=== PATIENT | male | born 1950 | race Caucasian/White ===

== ENCOUNTER 2022-05-02 19:56 | Outpatient (CLI) | payer OTHER, SELFPAY | END 2022-05-02 19:57 | disposition home or self-care (01) | LOC: AMB 05-05 11:46 | PROVIDERS: PCP Family Medicine; Visit Provider Family Medicine | DX: R06.09 Other forms of dyspnea (principal) | CPT/HCPCS: A0425; A0427 ==

== ENCOUNTER 2022-05-02 21:01 | Inpatient (IN) | payer OTHER, SELFPAY ==
[2022-05-02] VITALS (17 sets, daily range): BP systolic 140–158; BP diastolic 69–148; PULSE 68–76; RESP 20–22; TEMP 36.9; O2SAT 87–95; BMI 34.2
--- NOTE | 2022-05-02 21:24 | ED_ITS ---
HPI - General Adult General Time Seen by Provider: 21:24 Date Seen: 05/02/22 Chief complaint: Shortness of Breath/Dyspnea Stated complaint: Shortness of breath Time Seen by Provider: 05/02/22 21:18 Source: patient, EMS and RN notes reviewed Mode of arrival: EMS Limitations: no limitations History of Present Illness HPI narrative: This 72-year-old male came in from home via EMS with shortness of breath and difficulty breathing. He notes since maybe he was starting to have increased difficulty breathing. He has a history of congestive heart failure, does feel like his belly is been more bloated which she did bring up to his doctor recently. He is on Lasix 20 mg in the morning and has been taking it. He has not had any fevers. Today he started having increased difficulty with his breathing could not lie down but had been able to prior to today. He tried his albuterol prior to the ambulance coming and it did not help. He uses a metered dose inhaler and not nebulization. He has felt chest heaviness or congestion. He does not feel like he is having chest pain that would be a heart attack. He notes he had an echo of few weeks ago which showed some hardening in 1 part of his heart for which she is going to follow-up with a digital marketing apprentice. He has never had a heart attack before. He admits to forgetting some of his medicines the last 2 days. He is on an Advair generic equivalent per his report. EMS gave him 2 nitroglycerin and a DuoNeb in route and he states he is feeling much better. He has not been on any recent antibiotics, no recent oral steroids. On his pulse oximeter at home prior to calling EMS, he was 81-82%, tried sitting up and went up to upper 80s. He currently is on 2.5 L an is around 92-93%. He states at his baseline he is usually at 94% room air at home. Does not have any oxygen at home. EMS also gave him an aspirin. They got his O2 sats to be 88-90% on room air. Related Data Home Medications Medication Instructions Recorded Confirmed albuterol 90 mcg/actuation aerosol mcg inhalation 05/02/22 inhaler atorvastatin 10 mg tablet 10 mg PO DAILY 05/02/22 05/02/22 carvedilol 3.125 mg tablet 3.125 mg PO Q12H 05/02/22 05/02/22 fluticasone propionate 250 1 inh inhalation BID 05/02/22 05/02/22 mcg/actuation blister powder for inhalation furosemide 20 mg tablet 20 mg PO DAILY 05/02/22 05/02/22 losartan 100 mg tablet 100 mg PO DAILY 05/02/22 05/02/22 Allergies Allergy/AdvReac Type Severity Reaction Status Date / Time No Known Drug Allergies Allergy Verified 05/02/22 21:06 Review of Systems Status of ROS: Reports: 10 or more systems reviewed and unremarkable except as noted in History and below [facility] Social History Smoking Status: Former smoker Do you use any of these nicotine containing products: None Second hand tobacco smoke exposure: No How often do you have a drink containing alcohol: 4 or more times a week How many standard drinks containing alcohol do you have on a typical day: 1 or 2 How often do you have six or more drinks on one occasion: Less than monthly AUDIT-C Alcohol total score: 5 Non-prescribed substance use: denies use service: No Exam Const: Vital Signs, click to edit/add: Vital Signs - 24 hr 05/02/22 21:06 05/02/22 21:35 05/02/22 21:57 Temperature 98.4 F Pulse Rate 72 Pulse Rate [Pulse Oximeter] 74 71 Respiratory Rate 22 Blood Pressure Blood Pressure [Le ft Upper Arm] 142/69 H Pulse Oximetry 95 92 92 Oxygen Delivery Me thod Nasal Cannula Nasal Cannula Oxygen Flow Rate 3 05/02/22 22:00 05/02/22 22:02 05/02/22 21:32 Temperature Pulse Rate 72 72 Pulse Rate [Pulse Oximeter] Respiratory Rate Blood Pressure 140/79 H Blood Pressure [Le ft Upper Arm] Pulse Oximetry 92 92 92 Oxygen Delivery Me thod Oxygen Flow Rate 05/02/22 22:03 05/02/22 22:15 05/02/22 22:30 Temperature Pulse Rate 71 73 76 Pulse Rate [Pulse Oximeter] Respiratory Rate Blood Pressure Blood Pressure [Le ft Upper Arm] Pulse Oximetry 92 91 87 L Oxygen Delivery Me thod Oxygen Flow Rate 1 1 1 05/02/22 22:36 05/02/22 22:45 05/02/22 23:00 Temperature Pulse Rate 73 71 70 Pulse Rate [Pulse Oximeter] Respiratory Rate Blood Pressure 158/148 H Blood Pressure [Le ft Upper Arm] Pulse Oximetry 89 90 90 Oxygen Delivery Me thod Nasal Cannula Nasal Cannula Oxygen Flow Rate 1 1 Documenting provider has reviewed patient's vital signs: yes Common normals: no apparent distress, oriented x3, no limitations, healthy appearing, alert and well nourished General appearance: cooperative, comfortable, well kempt and well developed Other: Sitting upright in the ER bed, is able to speak in complete sentences. HENMT: Common normals: normocephalic, head/scalp atraumatic, hearing grossly normal bilaterally and external ears normal Head and scalp: normocephalic and atraumatic External ear: external ears normal Eye: Common normals: PERRL, EOMs intact bilaterally, conjunctivae normal and no scleral icterus Conjunctiva: conjunctiva(e) normal Pupil: PERRL Neck & C-Spine: Common normals: full ROM, no lymphadenopathy, supple, no meningeal signs, no JVD and thyroid normal Thyroid: thyroid normal Chest: Common normals: inspection of chest normal and palpation of chest normal Resp: Common normals: normal respiratory effort, no retractions and no use of accessory muscles Other: Has end expiratory wheezing throughout, does cough when I have him breathe for auscultation of his lungs. Cardio: Common normals: no JVD, regular rate, regular rhythm, S1 normal heart sound, S2 normal heart sound, no gallops, no clicks and no murmurs Rate: regular rate Rhythm: regular rhythm Heart sounds: S1 normal and S2 normal GI: Common normals: Normal to inspection, nondistended, normoactive bowel sounds present, soft to palpation, non-tender, no hepatosplenomegaly and no masses Palpation: soft and no hepatosplenomegaly Extremity: Other: No lower extremity edema, no calf tenderness. Neuro: Common normals: oriented x3 Sensorium/orientation: alert Meningeal signs: no meningeal signs Psych: Appearance: well kempt Course Course Hospital Course: Patient has wheezing which would suggest certainly COPD exacerbation. Have reviewed with him that we will look at his heart enzymes and consider congestive heart failure as a dual diagnosis. Will look for infective etiology, start with a portable chest x-ray. He will also get the triple viral swab. EKG is looking reassuring against acute ischemia but will also use troponin in this evaluation. I am going to give him an albuterol neb now, 40 mg oral steroids. May need to consider IV Lasix if we do think there is a component of CHF. Reevaluation(s) Reevaluation #1: Patient feels somewhat improved after the albuterol neb. On auscultation has increased air movement but there is still some end-expiratory wheezing throughout. Did attempt to turn off his oxygen and within 3 minutes he was down to 88%. I turned him back up to 1 L and within a few minutes he rebounded up to 90%. We discussed that we will make a goal of 90-92% with supplemental oxygen. He states he usually feels okay when he is in that range. Patient and I discussed he is unfortunately very likely to need admission at least overnight. He is hoping he could go home tomorrow. We need to see if any of the viral swab comes back positive. I am less suspicious of COVID causing a picture like this verses influenza or RSV. Does not seem quite sick enough for influenza. Time: 22:14 Consultations Consultation #1: Have spoken to the hospitalist Dr. Plummer. The procalcitonin and D-dimer are not run yet but they had placed a lab add on as she had requested when I spoke to her earlier. Rest of his evaluation is looking stable. No elevation of his troponin. No overt signs of CHF on his chest x-ray. Believe this to be more of a COPD exacerbation without bacterial infection at this time. He has received it nebulization and oral dose of steroids. She will be down to see him shortly. He is requiring supplemental oxygen. Time: 22:51 Vital Signs Vital signs: Initial Vital Signs Temperature 98.4 F 05/02/22 21:06 Temperature Source Temporal Artery Scan 05/02/22 21:06 Pulse Rate 74 05/02/22 21:06 Pulse Rhythm 05/02/22 21:06 Pulse Strength 3+ Normal 05/02/22 21:06 Blood Pressure Position Sitting 05/02/22 21:06 Pulse Oximetry 95 05/02/22 21:06 Oxygen Delivery Method 05/02/22 21:06 Oxygen Flow Rate 3 05/02/22 21:06 Vital Signs Temperature 98.4 F 05/02/22 21:06 Pulse Rate 74 05/02/22 21:06 Pulse Oximetry 95 05/02/22 21:06 Oxygen Delivery Method 05/02/22 21:06 Oxygen Flow Rate 3 05/02/22 21:06 Temperature 98.4 F 05/02/22 21:06 Pulse Rate 70 05/02/22 23:00 Respiratory Rate 22 05/02/22 21:35 Blood Pressure 158/148 H 05/02/22 22:36 Pulse Oximetry 90 05/02/22 23:00 Oxygen Delivery Method 05/02/22 22:45 Oxygen Flow Rate 1 05/02/22 22:45 Medical Decision Making Lab Data Lab results reviewed: Yes I reviewed the patient's lab results Labs: Lab Results 05/02/22 05/02/22 05/02/22 Range/Units 21:45 22:05 22:05 WBC 9.71 (4.50-11.00) K/uL RBC 4.54 (4.30-5.90) m/uL Hgb 14.6 (13.5-17.5) gm/dL Hct 44.3 (37.0-53.0) % MCV 98 (80-100) fL MCH 32 (26-34) pg MCHC 33 (32-36) gm/dL RDW Coeff of Glenn 12.6 (11.5-15.5) % Plt Count 205 (140-440) K/uL Neut % (Auto) 76.6 H (42.0-72.0) % Lymph % (Auto) 8.8 L (20-44) % [place] % (Auto) 7.7 (0.0-11.0) % Eos % (Auto) 5.6 (0.0-7.0) % Baso % (Auto) 0.4 (0.0-3.0) % Neut # (Auto) 7.40 H (1.7-7.0) K/uL Lymph # (Auto) 0.90 (0.90-2.90) K/uL [place] # (Auto) 0.70 (0.00-0.90) K/UL Eos # (Auto) 0.54 H (0.00-0.50) K/uL Baso # (Auto) 0.04 (0.00-0.30) K/uL D-Dimer Quant (PE/DVT) (0.00-0.50) ug/ml VBG pH (7.32-7.43) VBG pCO2 (40-50) mmHG VBG pO2 (25-47) mmHG VBG HCO3 (21-28) mmol/L Sodium 141 (135-149) mmol/L Potassium 4.5 (3.6-5.1) mmol/L Chloride 105 (96-114) mmol/L Carbon Dioxide 30 (20-32) mmol/L BUN 24 (7-30) mg/dL Creatinine 1.0 (0.5-1.5) mg/dL Estimated Creat Clear 72.16 Estimated GFR 80 ml/min Glucose 154 H (60-115) mg/dL Calcium 8.8 (8.4-10.6) mg/dL Total Bilirubin 0.7 (0.1-1.5) mg/dL AST 27 (12-35) U/L ALT 34 (4-50) U/L Alkaline Phosphatase 80 (40-150) U/L C-Reactive Protein 0.8 (0.5-1.0) mg/dL NT-Pro-B Natriuret Pep pg/mL Total Protein 7.3 (6.0-8.3) g/dL Albumin 4.4 (3.3-5.0) g/dL SARS-CoV-2 (PCR) Negative SARS-CoV-2 (Negative) Influenza Type A (PCR) Negative PCR FLU A (Negative) Influenza Type B (PCR) Negative PCR FLU B (Negative) RSV (PCR) Negative PCR RSV (Negative) POC Troponin I (0.01-0.04) ng/ml 05/02/22 05/02/22 05/02/22 Range/Units 22:05 22:05 22:05 WBC (4.50-11.00) K/uL RBC (4.30-5.90) m/uL Hgb (13.5-17.5) gm/dL Hct (37.0-53.0) % MCV (80-100) fL MCH (26-34) pg MCHC (32-36) gm/dL RDW Coeff of Glenn (11.5-15.5) % Plt Count (140-440) K/uL Neut % (Auto) (42.0-72.0) % Lymph % (Auto) (20-44) % [place] % (Auto) (0.0-11.0) % Eos % (Auto) (0.0-7.0) % Baso % (Auto) (0.0-3.0) % Neut # (Auto) (1.7-7.0) K/uL Lymph # (Auto) (0.90-2.90) K/uL [place] # (Auto) (0.00-0.90) K/UL Eos # (Auto) (0.00-0.50) K/uL Baso # (Auto) (0.00-0.30) K/uL D-Dimer Quant (PE/DVT) (0.00-0.50) ug/ml VBG pH 7.375 (7.32-7.43) VBG pCO2 52 H (40-50) mmHG VBG pO2 56.0 H (25-47) mmHG VBG HCO3 30 H (21-28) mmol/L Sodium (135-149) mmol/L Potassium (3.6-5.1) mmol/L Chloride (96-114) mmol/L Carbon Dioxide (20-32) mmol/L BUN (7-30) mg/dL Creatinine (0.5-1.5) mg/dL Estimated Creat Clear Estimated GFR ml/min Glucose (60-115) mg/dL Calcium (8.4-10.6) mg/dL Total Bilirubin (0.1-1.5) mg/dL AST (12-35) U/L ALT (4-50) U/L Alkaline Phosphatase (40-150) U/L C-Reactive Protein (0.5-1.0) mg/dL NT-Pro-B Natriuret Pep 572 pg/mL Total Protein (6.0-8.3) g/dL Albumin (3.3-5.0) g/dL SARS-CoV-2 (PCR) (Negative) Influenza Type A (PCR) (Negative) Influenza Type B (PCR) (Negative) RSV (PCR) (Negative) POC Troponin I 0.00 L (0.01-0.04) ng/ml 05/02/22 Range/Units 22:05 WBC (4.50-11.00) K/uL RBC (4.30-5.90) m/uL Hgb (13.5-17.5) gm/dL Hct (37.0-53.0) % MCV (80-100) fL MCH (26-34) pg MCHC (32-36) gm/dL RDW Coeff of Glenn (11.5-15.5) % Plt Count (140-440) K/uL Neut % (Auto) (42.0-72.0) % Lymph % (Auto) (20-44) % [place] % (Auto) (0.0-11.0) % Eos % (Auto) (0.0-7.0) % Baso % (Auto) (0.0-3.0) % Neut # (Auto) (1.7-7.0) K/uL Lymph # (Auto) (0.90-2.90) K/uL [place] # (Auto) (0.00-0.90) K/UL Eos # (Auto) (0.00-0.50) K/uL Baso # (Auto) (0.00-0.30) K/uL D-Dimer Quant (PE/DVT) 0.70 H (0.00-0.50) ug/ml VBG pH (7.32-7.43) VBG pCO2 (40-50) mmHG VBG pO2 (25-47) mmHG VBG HCO3 (21-28) mmol/L Sodium (135-149) mmol/L Potassium (3.6-5.1) mmol/L Chloride (96-114) mmol/L Carbon Dioxide (20-32) mmol/L BUN (7-30) mg/dL Creatinine (0.5-1.5) mg/dL Estimated Creat Clear Estimated GFR ml/min Glucose (60-115) mg/dL Calcium (8.4-10.6) mg/dL Total Bilirubin (0.1-1.5) mg/dL AST (12-35) U/L ALT (4-50) U/L Alkaline Phosphatase (40-150) U/L C-Reactive Protein (0.5-1.0) mg/dL NT-Pro-B Natriuret Pep pg/mL Total Protein (6.0-8.3) g/dL Albumin (3.3-5.0) g/dL SARS-CoV-2 (PCR) (Negative) Influenza Type A (PCR) (Negative) Influenza Type B (PCR) (Negative) RSV (PCR) (Negative) POC Troponin I (0.01-0.04) ng/ml Imaging Data Chest x-ray: Attestation: I have reviewed the pertinent imaging results. Radiologist's impression: Patient: LUCAS RODRIGUES Facility:?[facility] Patient ID:?[id number] Site Patient ID:?[id number]. Site :?[id number] Study:?XRay Chest PORTABLE-05/02/2022 10:00:21 PM Ordering Physician:Arturo Nice Final Report: Indication: Shortness of breath, wheezing, COPD, history of congestive failure Technique: Chest 1 view Comparison: None Findings/Impression: Cardiovascular and mediastinum: Heart size and vasculature are normal in caliber and appearance. Mediastinum is within normal limits. Lungs and pleural space: Lungs are clear. No sign of infiltrate or mass. No sign of pleural effusion. No pneumothorax. Bones and soft tissues: Elevated right hemidiaphragm. No acute osseous findings. Dictated by Cesilia Rivera MD @ 05/02/2022 10:25:39 PM (Electronic Signature) ECG Data Attestation: I personally reviewed and interpreted this ECG as follows: (Sinus rhythm with first-degree AV block, 74 beats per minute. No ischemic change noted. QT corrected 421 milliseconds.) Prior ECG tracings: not available for review Critical Care Time Critical Care Time Critical Care Time: No Discharge Plan Discharge Clinical Impression: Hypoxia, Acute exacerbation of chronic obstructive pulmonary disease Patient Disposition: Admitted As Inpatient Condition: Unchanged
--- NOTE | 2022-05-02 21:32 | CRLHL7_ITS ---
For Patients: As a result of the Century Cures Act, medical imaging exams and procedure reports are released immediately into your electronic medical record. You may view this report before your referring provider. If you have questions, please contact your health care provider. Indication: Shortness of breath, wheezing, COPD, history of congestive failure Technique: Chest 1 view Comparison: None Findings/Impression: Cardiovascular and mediastinum: Heart size and vasculature are normal in caliber and appearance. Mediastinum is within normal limits. Lungs and pleural space: Lungs are clear. No sign of infiltrate or mass. No sign of pleural effusion. No pneumothorax. Bones and soft tissues: Elevated right hemidiaphragm. No acute osseous findings. Dictated by Cesilia Rivera MD @ 05/02/2022 10:25:39 PM (Electronically Signed)
[2022-05-02] MEDS: ALBUTEROL SULFATE 2.5 MG/3 ML VIAL.NEB NEB (21:50)
[2022-05-02] MEDS: predniSONE 20 MG TABLET 40 MG PO (21:53)
--- NOTE | 2022-05-02 22:00 | ED.NURSE ---
Further communication with the transporting EMS crew reveals the patient reported SpO2 81% on his home pulse oximeter while trying to get into the car prior to EMS arrival. The patient was found to have SpO2 of 88-90% RA by EMS. Patient states he forgot to take his BP medications on and Wednesday. EMS reports tripod positioning. Patient was given Nitro SL 0.4mg x 2, a duoneb, and 324mg ASA PO. Patient also reported to EMS crew that he has had a cough for the last couple of days.
--- NOTE | 2022-05-02 22:13 | ED.NURSE ---
02 at 1 l and to keep 02 greater than 90%.
[2022-05-02 22:14] LABS: HCO3 VBG 30 mmol/L (21-28); PCO2 VBG 52 mmHG (40-50); pH VBG 7.375 (7.32-7.43)
[2022-05-02 22:31] LABS: Albumin* 4.4 g/dL (3.3-5.0); Chloride* 105 mmol/L (96-114); Potassium* 4.5 mmol/L (3.6-5.1); Sodium* 141 mmol/L (135-149)
[2022-05-02 22:34] LABS: Alkaline Phosphatase* 80 U/L (40-150); Aspartate Amino Transferase* 27 U/L (12-35); Bilirubin Total* 0.7 mg/dL (0.1-1.5); Blood Urea Nitrogen* 24 mg/dL (7-30); Carbon Dioxide* 30 mmol/L (20-32); Est. Creatinine Clearance* 72.16; Estimated Glomerular Filt Rate 80 ml/min; Total Protein* 7.3 g/dL (6.0-8.3)
[2022-05-02 22:35] LABS: Alanine Aminotransferase* 34 U/L (4-50); Calcium* 8.8 mg/dL (8.4-10.6); Glucose* 154 mg/dL (60-115)
[2022-05-02 22:37] LABS: C Reactive Protein* 0.8 mg/dL (0.5-1.0)
[2022-05-02 22:39] LABS: PCR FLU A Negative PCR FLU A (Negative); PCR FLU B Negative PCR FLU B (Negative); PCR RSV Negative PCR RSV (Negative)
[2022-05-02 22:40] LABS: Basophils Absolute Auto 0.04 K/uL (0.00-0.30); Basophils Percent Auto 0.4 % (0.0-3.0); Eosinophils Absolute Auto 0.54 K/uL (0.00-0.50); Eosinophils Percent Auto 5.6 % (0.0-7.0); Hematocrit 44.3 % (37.0-53.0); Hemoglobin* 14.6 gm/dL (13.5-17.5); Immature Granulocytes Abs Auto 0.09 K/uL (0.00-0.30); Immature Granulocytes Pct Auto 0.9 %; Lymphocytes Percent Auto 8.8 % (20-44); Mean Corpuscular HGB Conc 33 gm/dL (32-36); Mean Corpuscular Hemoglobin 32 pg (26-34); Mean Corpuscular Volume 98 fL (80-100); Monocytes Percent Auto 7.7 % (0.0-11.0); Neutrophils Percent Auto 76.6 % (42.0-72.0); Platelet Count* 205 K/uL (140-440); RDW Coefficient of Variation % 12.6 % (11.5-15.5); Red Blood Count 4.54 m/uL (4.30-5.90); White Blood Count* 9.71 K/uL (4.50-11.00)
[2022-05-02 22:44] LABS: NT Pro B Type NatriureticPept* 572 pg/mL; Slide Review Reflex No
[2022-05-02 22:44] LABS: SARS PCR* Negative SARS-CoV-2 (Negative)
[2022-05-02 23:20] LABS: Procalcitonin* 0.05 ng/mL (<0.50)
--- NOTE | 2022-05-02 23:39 | PM.IMHP1 ---
Hospitalist- H&P: HPI History of Present Illness Date Seen: 05/03/22 Chief complaint: Shortness of breath Narrative: ADMISSION HISTORY AND PHYSICAL - HOSPITALIST Chief Complaint: I can not catch my breath HPI: 72-year-old white male with a history of COPD, hypertension, obesity, AAA, RACHELLE on CPAP presents with increasing dyspnea. He states roughly 2 weeks ago he noticed a mild increase in his dyspnea on exertion. He used his inhaler which seemed to help initially. He remained active and did not think he needed medical attention. Over the last 2-3 days he has had the dyspnea has gotten much worse. There was no change in his sputum. There is no fever. His cough has picked up. Today he felt anxious and difficult with wheezing and shortness of breath even at rest. No chest pain. His again other was attempting to bring him to the emergency room when he asked for EMS. EMS initially noted O2 sats on room air in the low 80s. PFTs DATE OF SERVICE: 08/23/2019 This is a full pulmonary function test. The FVC and FEV1 were reduced. The FEV1/FVC ratio was 69. After bronchodilators, there was a 13% improvement in the FVC and a 12% improvement in the FEV1. Total lung capacity was normal at 98% of predicted. Diffusing lung capacity was normal at 96% of predicted. Patient's FeNO level was slightly elevated at 36. Patient had a previous spirometry performed on 07/26/2019, which showed an FVC of 1.63 and an the FEV1 of 1. ASSESSMENT: Moderate obstructive pulmonary impairment with a positive bronchodilator response. These findings are suggestive of asthma, though the possibility of COPD cannot be completely excluded. Echo 04/08/22 Final Impressions: 1. Mild evidence of left ventricular hypertrophy. 2. Normal left ventricular size, mildly increased wall thickness, normal global systolic function, calculated EF of 75 %. 3. Right ventricular cavity size is normal, global systolic RV function is normal. 4. The aortic valve is sclerotic, no stenosis and trivial regurgitation. 5. The ascending aorta is dilated with a maximal diameter of 4.5 cm. 6. The aortic sinus is dilated with a maximal diameter of 3.8 cm. ER COURSE: Oxygen to keep sats greater than 90%, needed 3 L initially. Nebs, prednisone and workup indicated COPD exacerbation. CODE STATUS: Full code EMERGENCY CONTACT PLAN: ex , she lives with him. I guess she is more like a significant other. I've updated the [facility], medications and allergies in the Expanse tabs. INVESTIGATIONS: LABS/MICRO/ECG/IMAGING Afebrile, temp is 98.4? F 158/148? Repeat was 143/76 Pulse 60 Respiratory rate 20-22 Pulse ox 92% on 2 L Weight 111 kilos CBC reflects a white blood cell count of 9.7, normal hemoglobin, normal platelets. D-dimer 0.7 PH is 7.37, mild CO2 elevation at 52 Electrolytes, renal function normal. Glucose 154. CRP and procalcitonin are both reassuring. Quad respiratory screen negative. Troponin negative. EKG shows sinus rhythm with a first-degree AV block. Normal chest x-ray, one view portable No micro REVIEW OF SYSTEMS: 12-point ROS completed with patient and negative unless otherwise stated in HPI or below. PHYSICAL EXAM: CONSTITUTIONAL: appears stated age; resting comfortable. can make jokes. He is coughing and audible wheezing noted. VITAL SIGNS: see record. HEENT: Normocephalic, atraumatic. PERRL, EOMI, conjunctivae pink, no scleral icterus. Ears and nose externally normal. Pharynx normal. NECK: No JVD. No carotid bruit, no thyromegaly, no adenopathy. CHEST: wheezing bilaterally; no resp distress HEART: S1 and S2 normal. No harsh murmurs. minimal edema MUSCULOSKELETAL: No gross joint deformity or swelling. NEURO: Cranial nerves intact. Grossly intact. No asymmetric findings. SKIN: No rashes, petechiae, concerning changes PSYCHIATRIC: Euthymic. ADMIT TO MEDSURG: FLOOR CARE DVT: Lovenox GI: PO intake Time spent: 70 minutes examining patient, conferring with family and patient, care staff, developing care plan [facility] Medical History (Updated 05/02/22 @ 23:52 by Marleny Plummer MD) Ascending aortic aneurysm COPD (chronic obstructive pulmonary disease) Essential hypertension Former smoker Hyperlipidemia RACHELLE (obstructive sleep apnea) Surgical History (Updated 05/02/22 @ 23:52 by Marleny Plummer MD) H/O arthroscopy of shoulder Social History (Updated 05/02/22 @ 23:53 by Marleny Plummer MD) Narrative: Retired excavator, 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 Lives with his ex-. Smoking Status: Former smoker Do you use any of these nicotine containing products: None Second hand tobacco smoke exposure: No How often do you have a drink containing alcohol: 4 or more times a week How many standard drinks containing alcohol do you have on a typical day: 1 or 2 How often do you have six or more drinks on one occasion: Less than monthly AUDIT-C Alcohol total score: 5 Non-prescribed substance use: denies use service: No Meds Home Medications and Allergies Home Medications Medication Instructions Recorded Confirmed Type albuterol 90 mcg/actuation aerosol mcg inhalation 05/02/22 History inhaler atorvastatin 10 mg tablet 10 mg PO DAILY 05/02/22 05/02/22 History carvedilol 3.125 mg tablet 3.125 mg PO Q12H 05/02/22 05/02/22 History fluticasone propionate 250 1 inh inhalation BID 05/02/22 05/02/22 History mcg/actuation blister powder for inhalation furosemide 20 mg tablet 20 mg PO DAILY 05/02/22 05/02/22 History losartan 100 mg tablet 100 mg PO DAILY 05/02/22 05/02/22 History Allergies Allergy/AdvReac Type Severity Reaction Status Date / Time No Known Drug Allergies Allergy Verified 05/02/22 21:06 Exam Const: Vital Signs, click to edit/add: Vital Signs - 24 hr 05/02/22 21:06 05/02/22 21:35 05/02/22 21:57 Temperature 98.4 F Pulse Rate 72 Pulse Rate [Pulse Oximeter] 74 71 Respiratory Rate 22 Blood Pressure Blood Pressure [Le ft Upper Arm] 142/69 H Pulse Oximetry 95 92 92 Oxygen Delivery Me thod Nasal Cannula Nasal Cannula Oxygen Flow Rate 3 05/02/22 22:00 05/02/22 22:02 05/02/22 21:32 Temperature Pulse Rate 72 72 Pulse Rate [Pulse Oximeter] Respiratory Rate Blood Pressure 140/79 H Blood Pressure [Le ft Upper Arm] Pulse Oximetry 92 92 92 Oxygen Delivery Me thod Oxygen Flow Rate 05/02/22 22:03 05/02/22 22:15 05/02/22 22:30 Temperature Pulse Rate 71 73 76 Pulse Rate [Pulse Oximeter] Respiratory Rate Blood Pressure Blood Pressure [Le ft Upper Arm] Pulse Oximetry 92 91 87 L Oxygen Delivery Me thod Oxygen Flow Rate 1 1 1 05/02/22 22:36 05/02/22 22:45 05/02/22 23:00 Temperature Pulse Rate 73 71 70 Pulse Rate [Pulse Oximeter] Respiratory Rate Blood Pressure 158/148 H Blood Pressure [Le ft Upper Arm] Pulse Oximetry 89 90 90 Oxygen Delivery Me thod Nasal Cannula Nasal Cannula Oxygen Flow Rate 1 1 05/02/22 23:39 Temperature Pulse Rate Pulse Rate [Pulse Oximeter] 68 Respiratory Rate 20 Blood Pressure Blood Pressure [Le ft Upper Arm] 143/76 H Pulse Oximetry 92 Oxygen Delivery Me thod Nasal Cannula Oxygen Flow Rate 1 Hospitalist - H&P: Result Labs Labs: Short CBC 05/02/22 Range/Units 22:05 WBC 9.71 (4.50-11.00) K/uL Hgb 14.6 (13.5-17.5) gm/dL Hct 44.3 (37.0-53.0) % Plt Count 205 (140-440) K/uL BMP 05/02/22 22:05 Sodium 141 Potassium 4.5 Chloride 105 Carbon Dioxide 30 BUN 24 Creatinine 1.0 Glucose 154 H Calcium 8.8 Liver Function 05/02/22 Range/Units 22:05 Total Bilirubin 0.7 (0.1-1.5) mg/dL AST 27 (12-35) U/L ALT 34 (4-50) U/L Alkaline Phosphatase 80 (40-150) U/L Albumin 4.4 (3.3-5.0) g/dL Assessment and Plan Assessment and plan (1) Acute respiratory failure with hypoxia and hypercapnia: Problem comment: Nebs, Solu-Medrol, no antibiotics at this point. O2 to keep sats greater than 90% Status: Acute (2) Acute exacerbation of chronic obstructive pulmonary disease: Problem comment: Nebs, Solu-Medrol, no antibiotics at this point. O2 to keep sats greater than 90% Status: Acute (3) RACHELLE (obstructive sleep apnea): Problem comment: Compliant with CPAP Status: Acute (4) Morbid obesity: Status: Acute (5) Essential hypertension: Problem comment: Continue Coreg and losartan Status: Acute (6) Ascending aortic aneurysm: Problem comment: 4.5 cm on 04/08/2022 echo Status: Acute (7) COPD (chronic obstructive pulmonary disease): Problem comment: Once daily willie Palaciosr.n. albuterol. No home O2. Smoked until 2007, pack per day Status: Acute
[2022-05-03] VITALS (12 sets, daily range): BP systolic 124–170; BP diastolic 69–90; PULSE 64–86; RESP 18–28; TEMP 36.7–37.1; O2SAT 90–92; BMI 35.3
--- NOTE | 2022-05-03 00:35 | ED.NURSE ---
report was given to m/s. has been watching tv.
[2022-05-03] MEDS: IPRAT-ALBUT 0.5-2.5 MG/3 ML NEB 1 NEB IH ×2 (01:38→14:54)
[2022-05-03] MEDS: LOSARTAN POTASSIUM 50 MG TABLET 100 MG PO ×2 (01:38→10:06)
[2022-05-03] MEDS: METHYLPREDNISOLONE SOD SUCC 62.5 MG/ML (125) 125 MG IVP ×3 (01:39→11:45)
[2022-05-03] MEDS: carvediloL 6.25 MG TABLET 3.125 MG PO ×3 (01:39→20:54)
[2022-05-03] MEDS: SODIUM CHLORIDE 0.9 % (FLUSH) 10 ML SYRINGE 5 ML IVF ×4 (01:47→20:56)
[2022-05-03 07:06] LABS: HCO3 VBG 32 mmol/L (21-28); Ionized Calcium* 1.15 mmol/L (1.11-1.30); PCO2 VBG 55 mmHG (40-50); PO2 VBG 56.6 mmHG (25-47); pH VBG 7.369 (7.32-7.43)
[2022-05-03 07:35] LABS: Chloride* 104 mmol/L (96-114); Potassium* 4.3 mmol/L (3.6-5.1); Sodium* 139 mmol/L (135-149)
[2022-05-03 07:38] LABS: Blood Urea Nitrogen* 20 mg/dL (7-30); Carbon Dioxide* 31 mmol/L (20-32); Creatinine* 0.8 mg/dL (0.5-1.5); Est. Creatinine Clearance* 72.16; Estimated Glomerular Filt Rate 95 ml/min
[2022-05-03 07:39] LABS: Calcium* 8.8 mg/dL (8.4-10.6); Glucose* 183 mg/dL (60-115); Hemoglobin A1C* 5.71 % (0-5.6); Magnesium* 2.3 mg/dL (1.5-2.6)
--- NOTE | 2022-05-03 07:44 | PC.NURSE ---
END OF SHIFT NOTE: PT PLEASANT AND COOPERATIVE. PT C/O CHEST TIGHTNESS AND SOB AT REST AND WITH ACTIVITY. DENIES N/V, DIZZY OR LIGHT-HEADED.?AMBULATES INDEPENDENTLY WITHIN ROOM. VSS ON 1L SUPPLEMENTAL O2; AFEBRILE. BED IN LOW POSITION AND CALL LIGHT WITHIN?PT?S REACH. LS WITH FINE INSPIRATORY CRACKLES AND EXPIRATORY WHEEZING THROUGHOUT POSTERIOR LOBES. PT ENCOURAGED TO USE IS AND AEROBIKA FOR RESPIRATORY HYGIENE.
[2022-05-03 07:56] LABS: Procalcitonin* 0.05 ng/mL (<0.50)
[2022-05-03 07:58] LABS: Troponin I* < 0.01 ng/mL (0.01-0.04)
[2022-05-03] MEDS: ATORVASTATIN 10 MG TABLET PO (10:05)
[2022-05-03] MEDS: BUDESONIDE 0.5 MG/2ML NEB NEB ×2 (10:05→20:55)
[2022-05-03] MEDS: FUROSEMIDE 20 MG TABLET PO (10:06)
--- NOTE | 2022-05-03 12:17 | PM.IMPN1 ---
Progress Note: A&P Assessment and plan (1) Acute respiratory failure with hypoxia and hypercapnia: Problem details: Nebs, Solu-Medrol, no antibiotics at this point. O2 to keep sats greater than 90% Status: Acute (2) Acute exacerbation of chronic obstructive pulmonary disease: Problem details: Nebs, Solu-Medrol, no antibiotics at this point. O2 to keep sats greater than 90% Status: Acute (3) Essential hypertension: Problem details: Continue Coreg and losartan Status: Acute (4) Morbid obesity: Status: Acute (5) RACHELLE (obstructive sleep apnea): Problem details: Compliant with CPAP Status: Acute (6) Ascending aortic aneurysm: Problem details: 4.5 cm on 04/08/2022 echo Status: Acute Plan continue IV solumedrol; continue nebs, procal 0.05 hold off on antibiotics; continue RT evaluation and pulmonary diet anticipate discharge to home tomorrow wean oxygen as tolerated; only requiring 1 liter currently Subjective Date Seen: 05/03/22 Interval history: patient requiring 1 liter supplemental oxygen still endorsing wheezing and productive cough denies chest pain Exam Narrative: Exam Narrative: Gen: no acute distress HEENT: NCAT EOMI mmm CV: RRR normal s1 s2 Lungs:diminished breath sounds; end expiratory wheezing Abd: Soft,nt, nd Neuro: Alert, oriented, CN grossly intact; nonfocal screening?exam Psych: appropriate affect MSK: age appropriate muscle mass Skin; Warm, dry no rash on face Const: Vital Signs, click to edit/add: Vital Signs - 24 hr 05/02/22 21:06 05/02/22 21:35 05/02/22 21:57 Temperature 98.4 F Pulse Rate 72 Pulse Rate [Pulse Oximeter] 74 71 Respiratory Rate 22 Blood Pressure Blood Pressure [Le ft Upper Arm] 142/69 H Blood Pressure [Ri ght Arm] Pulse Oximetry 95 92 92 Oxygen Delivery Me thod Nasal Cannula Nasal Cannula Oxygen Flow Rate 3 05/02/22 22:00 05/02/22 22:02 05/02/22 21:32 Temperature Pulse Rate 72 72 Pulse Rate [Pulse Oximeter] Respiratory Rate Blood Pressure 140/79 H Blood Pressure [Le ft Upper Arm] Blood Pressure [Ri ght Arm] Pulse Oximetry 92 92 92 Oxygen Delivery Me thod Oxygen Flow Rate 05/02/22 22:03 05/02/22 22:15 05/02/22 22:30 Temperature Pulse Rate 71 73 76 Pulse Rate [Pulse Oximeter] Respiratory Rate Blood Pressure Blood Pressure [Le ft Upper Arm] Blood Pressure [Ri ght Arm] Pulse Oximetry 92 91 87 L Oxygen Delivery Me thod Oxygen Flow Rate 1 1 1 05/02/22 22:36 05/02/22 22:45 05/02/22 23:00 Temperature Pulse Rate 73 71 70 Pulse Rate [Pulse Oximeter] Respiratory Rate Blood Pressure 158/148 H Blood Pressure [Le ft Upper Arm] Blood Pressure [Ri ght Arm] Pulse Oximetry 89 90 90 Oxygen Delivery Me thod Nasal Cannula Nasal Cannula Oxygen Flow Rate 1 1 05/02/22 23:39 05/02/22 23:15 05/02/22 23:30 Temperature Pulse Rate 70 69 Pulse Rate [Pulse Oximeter] 68 Respiratory Rate 20 Blood Pressure Blood Pressure [Le ft Upper Arm] 143/76 H Blood Pressure [Ri ght Arm] Pulse Oximetry 92 90 91 Oxygen Delivery Me thod Nasal Cannula Oxygen Flow Rate 1 05/02/22 23:36 05/02/22 23:39 05/02/22 23:45 Temperature Pulse Rate 69 71 71 Pulse Rate [Pulse Oximeter] Respiratory Rate Blood Pressure 143/76 H Blood Pressure [Le ft Upper Arm] Blood Pressure [Ri ght Arm] Pulse Oximetry 91 91 91 Oxygen Delivery Me thod Oxygen Flow Rate 05/03/22 00:00 05/03/22 00:02 05/03/22 00:15 Temperature Pulse Rate 70 69 69 Pulse Rate [Pulse Oximeter] Respiratory Rate Blood Pressure 153/83 H Blood Pressure [Le ft Upper Arm] Blood Pressure [Ri ght Arm] Pulse Oximetry 91 91 91 Oxygen Delivery Me thod Oxygen Flow Rate 05/03/22 02:00 05/03/22 00:49 05/03/22 00:49 Temperature 98.4 F Pulse Rate 75 Pulse Rate [Pulse Oximeter] 77 Respiratory Rate 20 20 Blood Pressure Blood Pressure [Le ft Upper Arm] Blood Pressure [Ri ght Arm] 170/88 H Pulse Oximetry 92 92 Oxygen Delivery Me thod Nasal Cannula Nasal Cannula Oxygen Flow Rate 1 1 05/03/22 00:47 05/03/22 00:47 05/03/22 00:47 Temperature 98.4 F Pulse Rate Pulse Rate [Pulse Oximeter] 77 Respiratory Rate 20 20 Blood Pressure Blood Pressure [Le ft Upper Arm] Blood Pressure [Ri ght Arm] 170/88 H Pulse Oximetry 92 92 92 Oxygen Delivery Me thod Nasal Cannula Nasal Cannula Oxygen Flow Rate 1 1 05/03/22 03:00 Temperature Pulse Rate Pulse Rate [Pulse Oximeter] 71 Respiratory Rate 20 Blood Pressure Blood Pressure [Le ft Upper Arm] Blood Pressure [Ri ght Arm] 146/85 H Pulse Oximetry 91 Oxygen Delivery Me thod Nasal Cannula Oxygen Flow Rate 1 Labs Labs: Laboratory Results - last 24 hr 05/02/22 05/02/22 05/02/22 21:45 22:05 22:05 WBC 9.71 RBC 4.54 Hgb 14.6 Hct 44.3 MCV 98 MCH 32 MCHC 33 RDW Coeff of Glenn 12.6 Plt Count 205 Neut % (Auto) 76.6 H Lymph % (Auto) 8.8 L [place] % (Auto) 7.7 Eos % (Auto) 5.6 Baso % (Auto) 0.4 Neut # (Auto) 7.40 H Lymph # (Auto) 0.90 [place] # (Auto) 0.70 Eos # (Auto) 0.54 H Baso # (Auto) 0.04 D-Dimer Quant (PE/DVT) VBG pH VBG pCO2 VBG pO2 VBG HCO3 Sodium 141 Potassium 4.5 Chloride 105 Carbon Dioxide 30 BUN 24 Creatinine 1.0 Estimated Creat Clear 72.16 Estimated GFR 80 Glucose 154 H Hemoglobin A1c Calcium 8.8 Ionized Calcium Abdoul Magnesium Total Bilirubin 0.7 AST 27 ALT 34 Alkaline Phosphatase 80 Troponin I C-Reactive Protein 0.8 NT-Pro-B Natriuret Pep Total Protein 7.3 Albumin 4.4 Procalcitonin SARS-CoV-2 (PCR) Negative SARS-CoV-2 Influenza Type A (PCR) Negative PCR FLU A Influenza Type B (PCR) Negative PCR FLU B RSV (PCR) Negative PCR RSV POC Troponin I 05/02/22 05/02/22 05/02/22 22:05 22:05 22:05 WBC RBC Hgb Hct MCV MCH MCHC RDW Coeff of Glenn Plt Count Neut % (Auto) Lymph % (Auto) [place] % (Auto) Eos % (Auto) Baso % (Auto) Neut # (Auto) Lymph # (Auto) [place] # (Auto) Eos # (Auto) Baso # (Auto) D-Dimer Quant (PE/DVT) VBG pH 7.375 VBG pCO2 52 H VBG pO2 56.0 H VBG HCO3 30 H Sodium Potassium Chloride Carbon Dioxide BUN Creatinine Estimated Creat Clear Estimated GFR Glucose Hemoglobin A1c Calcium Ionized Calcium Abdoul Magnesium Total Bilirubin AST ALT Alkaline Phosphatase Troponin I C-Reactive Protein NT-Pro-B Natriuret Pep 572 Total Protein Albumin Procalcitonin 0.05 SARS-CoV-2 (PCR) Influenza Type A (PCR) Influenza Type B (PCR) RSV (PCR) POC Troponin I 0.00 L 05/02/22 05/03/22 05/03/22 22:05 06:39 06:39 WBC RBC Hgb Hct MCV MCH MCHC RDW Coeff of Glenn Plt Count Neut % (Auto) Lymph % (Auto) [place] % (Auto) Eos % (Auto) Baso % (Auto) Neut # (Auto) Lymph # (Auto) [place] # (Auto) Eos # (Auto) Baso # (Auto) D-Dimer Quant (PE/DVT) 0.70 H VBG pH VBG pCO2 VBG pO2 VBG HCO3 Sodium 139 Potassium 4.3 Chloride 104 Carbon Dioxide 31 BUN 20 Creatinine 0.8 Estimated Creat Clear 72.16 Estimated GFR 95 Glucose 183 H Hemoglobin A1c 5.71 H Calcium 8.8 Ionized Calcium Abdoul Magnesium 2.3 Total Bilirubin AST ALT Alkaline Phosphatase Troponin I < 0.01 L C-Reactive Protein 1.0 NT-Pro-B Natriuret Pep Total Protein Albumin Procalcitonin 0.05 SARS-CoV-2 (PCR) Influenza Type A (PCR) Influenza Type B (PCR) RSV (PCR) POC Troponin I 05/03/22 06:39 WBC RBC Hgb Hct MCV MCH MCHC RDW Coeff of Glenn Plt Count Neut % (Auto) Lymph % (Auto) [place] % (Auto) Eos % (Auto) Baso % (Auto) Neut # (Auto) Lymph # (Auto) [place] # (Auto) Eos # (Auto) Baso # (Auto) D-Dimer Quant (PE/DVT) VBG pH 7.369 VBG pCO2 55 H VBG pO2 56.6 H VBG HCO3 32 H Sodium Potassium Chloride Carbon Dioxide BUN Creatinine Estimated Creat Clear Estimated GFR Glucose Hemoglobin A1c Calcium Ionized Calcium Abdoul 1.15 Magnesium Total Bilirubin AST ALT Alkaline Phosphatase Troponin I C-Reactive Protein NT-Pro-B Natriuret Pep Total Protein Albumin Procalcitonin SARS-CoV-2 (PCR) Influenza Type A (PCR) Influenza Type B (PCR) RSV (PCR) POC Troponin I
[2022-05-03] MEDS: guaiFENesin 100 MG/ML CUP PO (14:54)
[2022-05-03] MEDS: ENOXAPARIN 40 MG/0.4 ML INJ SUBCUT (20:55)
--- NOTE | 2022-05-03 21:30 | PC.NURSE ---
Nursing Care Hours: [id number] Pt this shift calm, cooperative, and very pleasant. Alert and oriented. Afebrile. Keeping O2 sats above 88% with 1L NC. Independent in room. Used portable O2 tank to walk in brody x2, maintained sat at 1.5 L NC.
[2022-05-04 03:00] VITALS: BP 148/83; PULSE 71; RESP 20; TEMP 37; O2SAT 91
--- NOTE | 2022-05-04 06:27 | PC.NURSE ---
Addendum entered by Haylee Mendez RN 05/04/22 06:50: PT WALKING THE HALLS THIS MORNING. ON 1.5L O2. DESATTING TO 85%. PT REPORTS FEELING SOB WITH ACTIVITY AND TIGHTNESS TO CHEST. Original Note: END OF SHIFT NOTE: PT PLEASANT AND COOPERATIVE. OCCASIONALLY C/O CHEST TIGHTNESS AND SOB. PT IS ENCOURAGED TO USE AEROBIKA AND IS FOR RESPIRATORY TOILETING.?AMBULATES INDEPENDENTLY WITHIN ROOM. VSS WITH 1-2L SUPPLEMENTAL OXYGEN NOC VIA NC. PT HAS RACHELLE, NOT USING CPAP DURING HOSPITAL STAY. AFEBRILE. BED IN LOW POSITION?AND CALL LIGHT WITHIN PT?S REACH.
[2022-05-04] MEDS: IPRAT-ALBUT 0.5-2.5 MG/3 ML NEB 1 NEB IH ×4 (06:54→19:51)
--- NOTE | 2022-05-04 07:35 | CRLHL7_ITS ---
For Patients: As a result of the Cures Act, medical imaging exams and procedure reports are released immediately into your electronic medical record. You may view this report before your referring provider. If you have questions, please contact your health care provider. INDICATION: COPD. TECHNIQUE: AP portable chest. COMPARISON: May 02, 2022. FINDINGS: Shallow inspiration. Eventration or elevation of the right hemidiaphragm unchanged. Questionable minor basilar atelectasis on the right. Clear left lung. No congestive heart failure. Old left clavicular fracture. IMPRESSION: No acute cardiopulmonary process identified. No significant change. Dictated by Jason Kerns MD @ 05/04/2022 8:55:41 AM (Electronically Signed)
[2022-05-04] MEDS: predniSONE 20 MG TABLET 60 MG PO (08:05)
[2022-05-04 08:50] VITALS: BP 151/78; PULSE 72; RESP 20; TEMP 36.8; O2SAT 93
--- NOTE | 2022-05-04 09:38 | RESP.RT ---
Patient is currently on 2 L NC and SATing 90%. He states that he has an Advair inhaler at home that he self medicates with once a day because he forgets to do his medications at night. I recommend Breo as an alternative as that covers 24hrs. He also states that he feels much better after a neb, but still gets fairly short of breath with activity. He is able to work with the [employer] on his own and we will monitor his ability to be weaned off O2 at rest, and will test him for Home O2 tomorrow.
[2022-05-04] MEDS: ATORVASTATIN 10 MG TABLET PO (09:45)
[2022-05-04] MEDS: carvediloL 6.25 MG TABLET 3.125 MG PO ×2 (09:46→20:49)
[2022-05-04] MEDS: FUROSEMIDE 20 MG TABLET PO (09:47)
[2022-05-04] MEDS: BUDESONIDE 0.5 MG/2ML NEB NEB ×2 (09:47→20:50)
[2022-05-04] MEDS: LOSARTAN POTASSIUM 50 MG TABLET 100 MG PO (09:47)
[2022-05-04] MEDS: SODIUM CHLORIDE 0.9 % (FLUSH) 10 ML SYRINGE 5 ML IVF ×2 (09:50→20:51)
[2022-05-04 11:10] VITALS: BP 151/87; PULSE 70; RESP 20; TEMP 36.7; O2SAT 90
--- NOTE | 2022-05-04 12:33 | P.IMPN_ITS ---
Progress Note: A&P Assessment and plan (1) Acute respiratory failure with hypoxia and hypercapnia: Problem details: - known history of COPD - continue steroids (transitioned to oral prednisone 05/04), nebulizer treatment, supplemental oxygen as needed - no indication for antibiotics given reassuring exam, normal procalcitonin, reassuring repeat chest XR - appreciate input from respiratory therapy Status: Acute (2) Acute exacerbation of chronic obstructive pulmonary disease: Status: Acute (3) Essential hypertension: Problem details: - continue home doses of Coreg and losartan Status: Acute (4) RACHELLE (obstructive sleep apnea): Problem details: - Compliant with CPAP as an outpatient Status: Acute (5) Ascending aortic aneurysm: Problem details: - 4.5 cm on 04/08/2022 echo, outpatient follow-up Status: Acute Plan - continue supplemental oxygen treatments as noted above - plan to continue to wean oxygen and discharged home when medically stable on room air, likely tomorrow - patient in agreement with plan Subjective Date Seen: 05/04/22 Interval history: No acute events overnight. Still requiring supplemental oxygen. Tolerating nebs and steroids well, feels better after nebulizer treatments. Working with respiratory therapy. Exam Narrative: Exam Narrative: GEN: Alert and oriented, sitting comfortably on bed and speaking in full sentences without concerning dyspnea HEENT: Normal external ears, EOMIs bilaterally, no scleral icterus CV: RRR, No concerning murmurs, rubs, or gallops R: Lung sounds decreased throughout, no concerning wheezing (had received a neb just prior to my exam) Ext: wwp, no concerning edema Skin: No concerning skin lesions or rashes on exposed skin Neuro: Nonfocal Psych: Appropriate Const: Vital Signs, click to edit/add: Vital Signs - 24 hr 05/03/22 15:00 05/03/22 15:00 05/03/22 19:00 Temperature 98.1 F Pulse Rate [Pulse Oximeter] 85 74 Respiratory Rate 18 20 Blood Pressure [Ri ght Arm] 149/75 H Pulse Oximetry 91 90 Oxygen Delivery Me thod Nasal Cannula Oxygen Flow Rate 1 05/03/22 23:00 05/03/22 23:00 05/03/22 23:00 Temperature 98.8 F Pulse Rate [Pulse Oximeter] 66 66 Respiratory Rate 22 22 Blood Pressure [Ri ght Arm] 124/69 Pulse Oximetry 91 91 Oxygen Delivery Me thod Nasal Cannula Oxygen Flow Rate 1 05/04/22 03:00 05/04/22 08:50 05/04/22 08:50 Temperature 98.6 F 98.3 F Pulse Rate [Pulse Oximeter] 71 72 Respiratory Rate 20 20 Blood Pressure [[facility] Arm] 148/83 H 151/78 H Pulse Oximetry 91 93 93 Oxygen Delivery Me thod Nasal Cannula Nasal Cannula Oxygen Flow Rate 2 2 05/04/22 11:10 Temperature 98.0 F Pulse Rate [Pulse Oximeter] 70 Respiratory Rate 20 Blood Pressure [[facility] Arm] 151/87 H Pulse Oximetry 90 Oxygen Delivery Me thod Nasal Cannula Oxygen Flow Rate 1
[2022-05-04 15:00] VITALS: BP 173/91; PULSE 74; RESP 20; TEMP 36.8; O2SAT 90
[2022-05-04 19:00] VITALS: BP 149/99; PULSE 72; RESP 20; TEMP 36.7; O2SAT 90
--- NOTE | 2022-05-04 19:49 | PC.NURSE ---
Pt up independently in room. RA -1L O2 needed throughout the day. Pt using IS and aerobica independently. Pt states he notices a big difference with sats when using aerobica. Education on medication complicance as well as importance of daily weight, pt agrees to information and agrees to compliance once home.
[2022-05-04 20:00] VITALS: PULSE 72; RESP 20; O2SAT 92
[2022-05-04] MEDS: ENOXAPARIN 40 MG/0.4 ML INJ SUBCUT (20:48)
[2022-05-05] MEDS: IPRAT-ALBUT 0.5-2.5 MG/3 ML NEB 1 NEB IH ×2 (03:45→07:02)
[2022-05-05 04:18] VITALS: BP 156/93; PULSE 66; RESP 20; TEMP 36.6; O2SAT 91
[2022-05-05 07:25] VITALS: PULSE 65; RESP 18
--- NOTE | 2022-05-05 08:06 | PC.NURSE ---
END OF SHIFT NOTE: PT PLEASANT AND COOPERATIVE. AMBULATES WITHIN ROOM INDEPENDENTLY. ON .5L NC TO MAINTAIN SPO2 >90%. PT CONTINUES TO USE IS AND AEROBIKA FOR RESPIRATORY TOILETING. NO WHEEZING AUSCULTATED THIS SHIFT. PT WOKE AT 3AM AND WAS UNABLE TO FALL BACK ASLEEP.
[2022-05-05 08:12] VITALS: BP 177/93; PULSE 65; RESP 18; TEMP 36.7; O2SAT 94; O2SAT 95
[2022-05-05] MEDS: LOSARTAN POTASSIUM 50 MG TABLET 100 MG PO (08:22)
[2022-05-05] MEDS: ATORVASTATIN 10 MG TABLET PO (08:22)
[2022-05-05] MEDS: FUROSEMIDE 20 MG TABLET PO (08:23)
[2022-05-05] MEDS: carvediloL 6.25 MG TABLET 3.125 MG PO (08:23)
[2022-05-05] MEDS: predniSONE 20 MG TABLET 60 MG PO (08:24)
[2022-05-05] MEDS: BUDESONIDE 0.5 MG/2ML NEB NEB (08:24)
--- NOTE | 2022-05-05 08:50 | PM.DS1 ---
DS: Providers Provider Date Seen: 05/05/22 Date of admission: 05/03/22 00:47 Primary care physician: Pablo Zuñiga MD Admitting Clinician: Marleny Plummer MD Consults: Respiratory therapy Attending Physician on discharge: Kylee Olivier MD Date of Discharge: 05/05/22 DS: Diagnosis Discharge Diagnosis (1) Acute respiratory failure with hypoxia and hypercapnia: Status: Acute (2) Acute exacerbation of chronic obstructive pulmonary disease: Status: Acute (3) Essential hypertension: Status: Acute Problem details: - continued home doses of Coreg and losartan (4) RACHELLE (obstructive sleep apnea): Status: Acute Problem details: - Compliant with CPAP as an outpatient (5) Ascending aortic aneurysm: Status: Acute Problem details: - 4.5 cm on 04/08/2022 echo, outpatient follow-up DS: Summary Hospital Course Hospital Course: Dipak is a very pleasant 72-year-old male with a known history of COPD, who presented to the hospital with acute hypoxic respiratory failure, secondary to COPD exacerbation. He was treated with steroids, DuoNebs, supplemental oxygen. He did not require antibiotic therapy given reassuring exam, normal procalcitonin, and reassuring imaging. Respiratory therapy followed patient during stay; recommended transitioning from Advair to Breo upon discharge given once daily dosing and cost. He was able to wean off supplemental oxygen and discharged home on room air on hospital day 2. He will see his PCP in 5-10 days for hospital discharge follow-up, return precautions discussed. Status at Discharge Functional status at discharge: independent ambulation Overall status at discharge: patient is back to baseline Time Spent with Patient Time attestation: Total time spent providing and/or coordinating discharge services: Time spent: Greater than 30 minutes Specific discharge activities: Medication reconciliation, new prescriptions, care coordination Exam Narrative: Exam Narrative: GEN: Alert, oriented, speaking in full sentences, nontoxic in appearance HEENT: EOMIs bilaterally, no scleral icterus CV: RRR, No concerning murmurs, rubs, or gallops R: LCTA bilaterally without audible wheezing. Air movement noted to be mildly decreased throughout Ext: wwp, no concerning edema Skin: No concerning skin lesions or rashes on exposed skin Neuro: Nonfocal Psych: Appropriate Const: Vital Signs, click to edit/add: Vital Signs - 24 hr 05/04/22 11:10 05/04/22 15:00 05/04/22 15:00 Temperature 98.0 F 98.3 F Pulse Rate [Bilate ral Dorsalis Pedis ] Pulse Rate [Pulse Oximeter] 70 74 Respiratory Rate 20 20 Blood Pressure [Ri ght Arm] 151/87 H 173/91 H Pulse Oximetry 90 90 90 Oxygen Delivery Me thod Nasal Cannula Room Air Oxygen Flow Rate 1 05/04/22 19:00 05/05/22 04:18 05/04/22 20:00 Temperature 98.1 F 97.9 F Pulse Rate [Bilate ral Dorsalis Pedis ] 66 Pulse Rate [Pulse Oximeter] 72 Respiratory Rate 20 20 Blood Pressure [Ri ght Arm] 149/99 H 156/93 H Pulse Oximetry 90 91 92 Oxygen Delivery Me thod Room Air Nasal Cannula Oxygen Flow Rate 1 0.5 05/04/22 20:00 05/05/22 08:12 05/05/22 08:12 Temperature 98.0 F Pulse Rate [Bilate ral Dorsalis Pedis ] 65 Pulse Rate [Pulse Oximeter] 72 Respiratory Rate 20 18 Blood Pressure [Ri ght Arm] 177/93 H Pulse Oximetry 95 94 Oxygen Delivery Me thod Nasal Cannula Oxygen Flow Rate 0.5 05/05/22 07:25 Temperature Pulse Rate [Bilate ral Dorsalis Pedis ] 65 Pulse Rate [Pulse Oximeter] Respiratory Rate 18 Blood Pressure [Ri ght Arm] Pulse Oximetry Oxygen Delivery Me thod Oxygen Flow Rate Discharge Plan Discharge Disposition: Home, Self-Care Date of Admission: 05/03/22 00:47 Attending Provider on Discharge: Kylee Olivier Primary Care Provider: Pablo Zuñiga Condition: Improved Anticipated Discharge Date/Time: 05/05/22 10:00 Discharge Medications: New ipratropium-albuterol 0.5 mg-3 mg(2.5 mg base)/3 mL Solution For Nebulization 1.5 ml inhalation Q4H PRN (Reason: shortness of breath or wheezing) Qty: 90 0RF fluticasone furoate-vilanterol [Breo Ellipta] 200-25 mcg/dose blister with device 1 inh inhalation DAILY Qty: 60 0RF prednisone 10 mg tablet 10 mg PO DAILY 18 Days Qty: 43 0RF Rx Instructions: 6 tabs po x1d, then 4 tabs po Qdx5d, then 2 tabs po Qdx5d, then 1 tab po QD x7d, then stop (DME) nebulizer and compressor Device See Rx Instructions .Route Qty: 1 0RF Rx Instructions: As directed Continued albuterol 90 mcg/actuation aerosol inhalation carvedilol 3.125 mg tablet 3.125 mg PO BIDWM Rx Instructions: must administer with a meal/food atorvastatin 10 mg tablet 10 mg PO DAILY furosemide 20 mg tablet 20 mg PO DAILY losartan 100 mg tablet 100 mg PO DAILY Discontinued fluticasone propionate 250 mcg/actuation blister with device 1 inh inhalation BID Discharge Orders: Discharge Order (Routine); Ordered 05/05/22 Ordered By: Kylee Olivier Patient Education: Prednisone (By mouth), Ipratropium/Albuterol (By breathing), Fluticasone/Vilanterol (By breathing), COPD (Chronic Obstructive Pulmonary Disease) (DC) Additional Instructions: STOP your Advair. Medications at Pharmacy: START Breo (new steroid inhaler, once/day - take every day to prevent further COPD exacerbations). CONTINUE Prednisone taper (take once/day, in the morning with food). NEW: Nebulizer machine and medication at pharmacy. Keep an eye on your oxygen levels - okay to be <90% with activity if you are otherwise feeling okay and you are in the 89-90% range with rest. See PCP in the next 5-10 days. Activity Level: Activity as Tolerated Discharge Diet: Regular Follow Up Appointments: Pablo Zuñiga MD [Primary Care Provider] - 05/11/22 1:50 pm Forms: [facility] Info Instructions
--- NOTE | 2022-05-05 10:13 | PC.NURSE ---
Discharge, pt has been very pleasant. no pain Pt up independently in room. he has been on RA this am 90 over above. Pt using IS and aerobica every hour. he is eating, drinking and voiding with no problems. went over discharge packet with pt. went over medications, appointment, instructions and education. SL was d.c intact. pt went over and signed personal belonging sheet. he got a w/c ride out.
== END 2022-05-05 09:30 | disposition home or self-care (01) | DRG 189 ==
LOC: ED 05-03 → MEDSURG 05-03 00:25
PROVIDERS: Admitting Provider Family Medicine; Emergency Provider Family Medicine; PCP Family Medicine; Visit Provider Family Medicine
DX: J96.01 Acute respiratory failure with hypoxia (principal); J44.1 Chronic obstructive pulmonary disease with (acute) exacerbation; J96.02 Acute respiratory failure with hypercapnia; G47.33 Obstructive sleep apnea (adult) (pediatric); I11.0 Hypertensive heart disease with heart failure; I50.9 Heart failure, unspecified; I71.21 Aneurysm of the ascending aorta, without rupture; I44.0 Atrioventricular block, first degree; E66.01 Morbid (severe) obesity due to excess calories; Z68.35 Body mass index [BMI] 35.0-35.9, adult; Z87.891 Personal history of nicotine dependence
CPT/HCPCS: 36415; 71045; 80048; 80053; 82330; 82803; 83036; 83735; 83880; 84145; 84484; 85025; 85379; 86140; 87502; 87634; 87635; 93005; 94640; 94664; 94761; 99284; 99285; G0378; A9270; J1650; J2930; J7512; J7626